=== PATIENT | female | born 1955 | race Caucasian/White ===

== ENCOUNTER 2017-03-19 23:45 | Emergency (ER) | payer OTHER ==
[2017-03-20 00:04] VITALS: RESP 16
[2017-03-20 00:13] LABS: % IMMATURE GRANULYOCYTES 0.3 % (0.0-1.1); ABSOLUTE IMMATURE GRANULOCYTES 0.03 10^3/uL (0.00-0.10); ADD DIFF? NO; ADD MORPH? NO; ADD SCAN? NO; ATYPICAL LYMPHOCYTE FLAG 20 (0-99); FRAGMENT RBC FLAG 0 (0-99); HEMOGLOBIN 15.5 g/dL (12.6-16.3); LEFT SHIFT FLG 0 (0-99); LIPEMIA HEMOLYSIS FLAG 90 (0-99); MEAN CELL HEMOGLOBIN 31.6 pg (27.9-34.1); MEAN CELL HEMOGLOBIN CONCENTR. 34.4 g/dL (32.4-36.7); MEAN CELL VOLUME 91.6 fL (81.5-99.8); MEAN PLATELET VOLUME 8.5 fL (8.7-11.7); PLATELET CLUMPS FLAG 0 (0-99); PLATELET COUNT 334 10^3/uL (150-400); RED BLOOD CELL COUNT 4.91 10^6/uL (4.18-5.33); RED CELL DISTRIBUTION WIDTH 12.7 % (11.5-15.2)
[2017-03-20 00:26] LABS: ANION GAP 14 mEq/L (8-16); CALCIUM 9.3 mg/dL (8.5-10.4); CARBON DIOXIDE 21 mEq/l (22-31); CHLORIDE 109 mEq/L (97-110); CREATININE 0.7 mg/dL (0.6-1.0); GLOMERULAR FILTRATION RATE > 60; GLUCOSE 97 mg/dL (70-100); POTASSIUM 4.3 mEq/L (3.5-5.2); SODIUM 144 mEq/L (134-144)
[2017-03-20 00:51] LABS: ETHANOL SERUM 334 mg/dL (0-10)
--- NOTE | 2017-03-20 01:08 | EDPHY ---
H & P Stated Complaint: INTOXICATED, MAKING SUICIDAL STATMENTS TO FRIEND - Personal History Current Tetanus Diphtheria and Acellular Pertussis (TDAP): Yes - Medical/Surgical History Hx Asthma: No Other PMH: HTN - Social History Smoking Status: Current every day smoker HPI/ROS: Chief complaint: Mental health hold History of present illness: This is a 61-year-old female brought to the emergency department by police and EMS on a mental health hold. Apparently patient ask a friend today to kill her. She stated she did not want to live anymore. On my evaluation patient states she feels fine. She denies suicidal ideation. She denies homicidal ideation. She denies illness or injury. Review of systems: A 10 point review of systems was obtained and other than described above was negative (Corey Rodriguez) - Physical Exam Exam: General Appearance: Alert, Nontoxic. Eyes: Pupils equal and round no pallor or injection. ENT, Mouth: Mucous membranes moist. Respiratory: There are no retractions, lungs are clear to auscultation. Cardiovascular: Regular rate and rhythm. Gastrointestinal: Abdomen is soft and non tender, no masses, bowel sounds normal. Neurological: Alert. Strength and sensation intact and symmetrical. Skin: Warm and dry, no rashes. Musculoskeletal: Neck is supple non tender. Extremities are symmetrical, full range of motion. Psychiatric: There is no agitation. (Corey Rodriguez) Constitutional: Initial Vital Signs Temperature (C) 36.3 C 03/19/17 23:45 Heart Rate 79 03/19/17 23:45 Respiratory Rate 16 03/19/17 23:45 Blood Pressure 115/81 H 03/19/17 23:45 O2 Sat (%) 95 03/19/17 23:45 O2 Delivery Mode Room Air Allergies/Adverse Reactions: Penicillins Allergy (Verified 03/19/17 23:57) Home Medications: Medication Instructions Recorded Cholecalciferol Vit D3 [Vitamin D3 1,000 units PO MOTUWETHFR@09 03/20/17 (*)] Herbals/Supplements -Info Only 1 ea PO DAILY 03/20/17 Lisinopril [Zestril 10 mg (*)] 10 mg PO DAILY 03/20/17 Medical Decision Making ED Course/Re-evaluation: Patient seen under the supervision of my secondary supervising physician Dr. Graham. Patient presents to the emergency department on a mental health hold. Patient is medically evaluated. She is heavily intoxicated but otherwise cleared for psychiatric evaluation. She will need to sober up before evaluation can take place. Care of patient is turned over to Dr. Garham at end of shift. (Corey Rodriguez) 7:00 a.m.- The patient remained stable throughout my shift. She is still sobering up and has not been evaluated by the mental health team. The case will be turned over to Dr. Marie. (Leila Graham) Differential Diagnosis: Included but not limited to substance abuse, depression, bipolar (Corey Rodriguez) Other Provider: I assumed care of the patient at 7:00 a.m. pending psychiatric evaluation. Update at noon, patient has now sobered continues to have suicidal ideation. She is currently being evaluated by the psychiatric speech language specialist. Updated 2:00 p.m.: Patient has been accepted for psychiatric admission at [facility] by Dr. Zapata. I have filled out the EMTALA transfer form. ( Girish Marie) - Data Points Laboratory Results: Laboratory Results 03/20/17 00:00 03/20/17 00:00 03/20/17 09:50 Urine Opiates Screen NEGATIVE (NEGATIVE) Urine Barbiturates NEGATIVE (NEGATIVE) Ur Phencyclidine Scrn NEGATIVE (NEGATIVE) Ur Amphetamine Screen NEGATIVE (NEGATIVE) U Benzodiazepines Scrn NEGATIVE (NEGATIVE) Urine Cocaine Screen NEGATIVE (NEGATIVE) U Marijuana (THC) Screen NEGATIVE (NEGATIVE) Departure - Departure Disposition: Other Psych, Not [place] Clinical Impression: Suicidal ideation Condition: Good Referrals: NONE *PRIMARY CARE P,. [Primary Care Provider] - As per Instructions
[2017-03-20 08:11] VITALS: TEMP 97.7; O2SAT 96
[2017-03-20] MEDS ORDERED: LISINOPRIL 10 MG TAB PO SCH (12:00)
[2017-03-20] MEDS ORDERED: NICOTINE POLACRILEX 2 MG GUM B PRN (13:21)
[2017-03-20 13:58] VITALS: BP 131/89; PULSE 74
== END 2017-03-20 15:03 ==
LOC: EDUNIT#
DX: R45.851 Suicidal ideations (principal); F17.200 Nicotine dependence, unspecified, uncomplicated; I10 Essential (primary) hypertension
CPT/HCPCS: 80305; G0480